=== PATIENT | female | born 1955 | race Caucasian/White ===

== ENCOUNTER → 2017-03-27 | Outpatient (CLI) | payer OTHER ==
[~2017-03-27] MED LIST: FEMHRT 1/5 TABL1 TAB; FLAGYL PO; FOSAMAX; FOSAMAX PO; HYZAAR 50-1 TAB 50-1 PO; LEVAQUIN PO; PRILOSEC PO; SINGULAIR PO; SYMBICORT80 INH
--- NOTE | ~2017-03-27 | BD1 ---
[facility] A Service of [facility] & [facility] RADIOLOGY TEXT RESULTS PATIENT: MONICA MITCHELL LOCATION: [facility] : 55 UNIT #: [id number] AGE: [address]: Roman Johnson MD SEX: F ORDER DR: [id number] [facility] [address] [place], [place] [address] [id number] O MR#: [id number] Acc #: [id number] NAME: MONICA MITCHELL : 1955 SEX: F STUDY DATE/TIME: 03/27/2017 10:33 UNIT: [facility] ROOM: STUDY DESCRIPTION: BD Dexa Bone Dens 1+ Site Attending Physician: Roman Johnson M.D. Ordering Physician: Roman Johnson M.D. Primary Care Physician: Roman Johnson M.D. MEDICAL IMAGING REPORT This report is preliminary unless electronic signature is present EXAM DXA scan, 03/27/2017 HISTORY Status post menopause with no hormone replacement therapy. Osteopenia. Arthritis. Anticonvulsant use. Smoking history for 12 years. FINDINGS Bone mineral density in the lumbar spine from L1-L4 is 0.901 g/cm2 which is 1.3 standard deviations below the mean when compared to the young adult reference population which is characteristic of osteopenia. This is 0.2 standard deviations above the mean when compared to the age-matched population. Bone mineral density in the left femoral neck was 0.594 g/cm2 which is 2.3 standard deviations below the mean when compared to the young adult reference population which is characteristic of osteopenia. This is 0.9 standard deviations below the mean when compared to the age-matched population. IMPRESSION Bone mineral density in the lumbar spine and left hip characteristic of osteopenia. Dictated by... Orestes Marr M.D. THIS IS AN ELECTRONICALLY VERIFIED REPORT Orestes Marr M.D. at 03/28/2017 9:01 AM RADHA/meena TD: 03/27/2017 12:42 JOB #: [id number] [facility] A Service of [facility] & [facility] RADIOLOGY TEXT RESULTS PATIENT: MONICA MITCHELL [id number] : 55 UNIT #: [id number] AGE: [address]: Roman Johnson MD SEX: F ORDER DR: MEDICAL IMAGING REPORT Page 1 of 1 COPY
== END | disposition home or self-care (01) ==
LOC: CWCC 10:14
DX: M85.80 Other specified disorders of bone density and structure, unspecified site (principal); M85.89 Other specified disorders of bone density and structure, multiple sites
CPT/HCPCS: 77080